=== PATIENT | female | born 1955 | race Caucasian/White ===

== ENCOUNTER 2017-07-17 11:02 | Emergency (ER) | payer SELFPAY ==
[2017-07-17 11:11] VITALS: BP 161/70
--- NOTE | 2017-07-17 11:47 | DR.GENAD ---
HPI - PCP Primary Care Physician: BENJY - Complaint/Symptoms Chief Complaint Doctors Comments: Patient admits to diarrhea for four weeks. Recently the stool was black. She denies vomiting. She admits to a history diverticulitis and GI surgery. She smokes but denies cardiopulmonary disease. Chief Complaint:: PT C/O DIARRHEA THAT HAS BEEN GOING ON X4 WEEKS PT HAS NOT BEEN ABLE TO EAT ANYTHING. PT STATES SHE IS WEAK SHE ALSO STATES HER BM IS BLACK IN COLOR - Source History Provided: Patient - Mode of Arrival Mode of Arrival: Ambulatory - Timing Onset of Chief Complaint: 06/19/17 PMH - PMH Past Medical History: Yes Past Medical History: Coronary Artery Disease, Diabetes, Dyslipidemia, Hypertension Past Medical History Comment: DIVERTICULOSIS Past Surgical History: Yes Surgical History: Abdominal Surgery, Cholecystectomy Past Surgical History Comment: TUBALIGATION - Family History History of Family Medical Conditions: No - Social History Does patient currently use any type of tobacco product: Yes Have you used tobacco products in the last 12 months: Yes Type of Tobacco Use: Cigarettes Alcohol Use: None Do you use any recreational Drugs:: No Lives With: Family Lives Where: Home - infectious screening In the last 2 months have you had wt loss of >10#?: NO Have you had fever, night sweats or hemotysis?: No Have you traveled outside the country in the last 6 months?: No Isolation: Standard ROS - Review of Systems Constitutional: negative: Diaphoresis Eyes: No Symptoms Reported ENTM: No Symptoms Reported Respiratoy: No Symptoms Reported Cardiovascular: No Symptoms Reported Gastrointestinal/Abdominal: No Symptoms Reported Genitourinary: No Symptoms Reported Neurological: No Symptoms Reported Musculoskeletal: No Symptoms Reported Integumentary: No Symptoms Reported Hematologic/Lymphatic: No Symptoms Reported Endocrine: No Symptoms Reported Psychiatric: No Symptoms Reported All Other Systems: Reviewed and Negative PE - Vital Signs Vitals: Temperature 97.9 F Pulse Rate 71 Respiratory Rate 20 Blood Pressure 161/70 O2 Sat by Pulse Oximetry 99 - General Limitations: No Limitations General Appearance: Alert, In No Apparent Distress - Head Head Exam: Normal Inspection, Atraumatic - Eyes Eye exam: Normal Appearance, PERRL, EOMI - ENT ENT Exam: Normal Exam External Ear Exam: Normal External Inspection TM/Canal Exam: Bilateral Normal Nose Exam: Normal Nose Exam Mouth Exam: Normal Inspection Throat Exam: Normal Inspection - Neck Neck Exam: Normal Inspection, Full ROM - Chest Chest Inspection: Normal Inspection, Symmetric Chest Wall Rise - Respiratory Respiratory Exam: Normal Lung Sounds Bilat Respiratory Exam: Bilateral Clear to Auscultation - Cardiovascular Cardiovascular Exam: Regular Rate, Normal Rhythm - Abdominal Exam Abdominal Exam: Normal Inspection Abdominal Tenderness: negative: RUQ, RLQ, LUQ, LLQ, Epigastrium, Suprapubic, Diffuse, Mild, Moderate, Severe, Other - Extremities Extremities Exam: Normal Inspection - Back Back Exam: Normal Inspection - Neurologic Neurological Exam: Alert, Oriented X3, CN II-XII Intact - Psychiatric Psychiatric Exam: Normal Affect - Skin Skin Exam: Warm, Dry, Intact Course - Reevaluation 1st: Improved - Education/Counseling Educated On: Treatment, Diagnosis, Prognosis, Needs for Follow Up ROR - Labs Reviewed Result Diagrams: 07/17/17 12:03 07/17/17 12:03 Laboratory: WBC 10.6 X10^3/uL (3.6-10.0) H 07/17/17 12:03 RBC 4.17 X10^6/uL (3.5-5.4) 07/17/17 12:03 Hgb 12.2 g/dL (12.0-16.0) 07/17/17 12:03 Hct 36.2 % (36.0-47.0) 07/17/17 12:03 MCV 86.9 fL (80.0-100.0) 07/17/17 12:03 MCH 29.4 pg (27.0-34.0) 07/17/17 12:03 MCHC 33.8 g/dL (33.0-35.0) 07/17/17 12:03 RDW 13.4 % (11.6-16.5) 07/17/17 12:03 Plt Count 432 X10^3/uL (150.0-450.0) 07/17/17 12:03 MPV 7.8 fL (7.4-11.0) 07/17/17 12:03 Neut % 69.1 % (42.0-75.0) 07/17/17 12:03 Lymph % 16.7 % (21.0-51.0) L 07/17/17 12:03 Bennett % 12.8 % (0.0-13.0) 07/17/17 12:03 Eos % 0.8 % (0.9-2.9) L 07/17/17 12:03 Baso % 0.6 % (0.2-1.0) 07/17/17 12:03 Neut # 7.3 x10^3/uL (2.2-4.8) H 07/17/17 12:03 Lymph # 1.8 X10^3/uL (1.3-2.9) 07/17/17 12:03 Bennett # 1.4 x10^3/uL (0.3-0.8) H 07/17/17 12:03 Eos # 0.1 x10^3/uL (0.0-0.2) 07/17/17 12:03 Baso # 0.1 X10^3/uL (0.0-0.1) 07/17/17 12:03 Absolute Nucleated RBC 0.0 /100WBC 07/17/17 12:03 Sodium 139 mmol/L (136-145) 07/17/17 12:03 Corrected Sodium 142 mmol/L (136-145) 07/17/17 12:03 Potassium 3.4 mmol/L (3.5-5.1) L 07/17/17 12:03 Chloride 104 mmol/L (98-107) 07/17/17 12:03 Carbon Dioxide 22.8 mmol/L (21-32) 07/17/17 12:03 BUN 31 mg/dL (7-18) H 07/17/17 12:03 Creatinine 2.73 mg/dL (0.55-1.02) H 07/17/17 12:03 Est GFR (MDRD) Af Amer 23 (>60) L 07/17/17 12:03 Est GFR (MDRD) Non-Af 19 (>60) L 07/17/17 12:03 Glucose 236 mg/dL (65-99) H 07/17/17 12:03 Calcium 8.6 mg/dL (8.5-10.1) 07/17/17 12:03 Corrected Calcium 9.2 mg/dL (8.5-10.1) 07/17/17 12:03 Total Bilirubin 0.20 mg/dL (0.2-1.0) 07/17/17 12:03 AST 7 Units/L (15-37) L 07/17/17 12:03 ALT 8 Units/L (12-78) L 07/17/17 12:03 Alkaline Phosphatase 101 Units/L (46-116) 07/17/17 12:03 C-Reactive Protein 17.30 mg/L (0-3.0) H 07/17/17 12:03 Total Protein 7.6 g/dL (6.4-8.2) 07/17/17 12:03 Albumin 3.2 g/dL (3.4-5.0) L 07/17/17 12:03 Globulin 4.4 g/dL (2.5-4.5) 07/17/17 12:03 Albumin/Globulin Ratio 0.7 Ratio (1.1-2.1) L 07/17/17 12:03 Amylase 21 Units/L (25-115) L 07/17/17 12:03 Lipase 83 Units/L (73-393) 07/17/17 12:03 H. pylori IgG Antibody Negative (NEGATIVE) 07/17/17 12:03 - XRAY XRAY Interpreted by: Radiologist (Chest No abnormality; Abdomen: reveals scattered large and small bowel gas. Several air-fluid levels are present appearing to be predominantly in the colon. I see no definite evidence of bowel obstruction. Small amount of stool and gas is noted in the region of the rectum. Surgical sutures overlie the abdomen. No acute bony abnormalities are identified.) - Diagnosis Discharge Problem: Chronic diarrhea, Hypokalemia, Dehydration, mild - Discharge Plan Condition: Stable - Follow ups/Referrals Follow ups/Referrals: [facility] [Primary Care Provider] - 3 days - Instructions
[2017-07-17] MEDS ORDERED: NS 1000 ML 1,000 ML ONE ×2 (11:50→13:23)
[2017-07-17] MEDS ORDERED: NS 1000 ML 1,000 ML IV ONE ×2 (12:06→13:15)
[2017-07-17 12:10] LABS: BASOPHILS # (AUTO) 0.1 X10^3/uL (0.0-0.1); BASOPHILS % (AUTO) 0.6 % (0.2-1.0); EOSINOPHILS # (AUTO) 0.1 x10^3/uL (0.0-0.2); EOSINOPHILS % (AUTO) 0.8 % (0.9-2.9); HEMATOCRIT 36.2 % (36.0-47.0); HEMOGLOBIN 12.2 g/dL (12.0-16.0); LYMPHOCYTES # (AUTO) 1.8 X10^3/uL (1.3-2.9); LYMPHOCYTES % (AUTO) 16.7 % (21.0-51.0); MEAN CORPUSCULAR HEMOGLOBIN 29.4 pg (27.0-34.0); MEAN CORPUSCULAR HGB CONC 33.8 g/dL (33.0-35.0); MEAN CORPUSCULAR VOLUME 86.9 fL (80.0-100.0); MEAN PLATELET VOLUME 7.8 fL (7.4-11.0); MONOCYTES # (AUTO) 1.4 x10^3/uL (0.3-0.8); MONOCYTES % (AUTO) 12.8 % (0.0-13.0); NEUTROPHILS # (AUTO) 7.3 x10^3/uL (2.2-4.8); NEUTROPHILS % (AUTO) 69.1 % (42.0-75.0); PLATELET COUNT 432 X10^3/uL (150.0-450.0); RED BLOOD COUNT 4.17 X10^6/uL (3.5-5.4); RED CELL DISTRIBUTION WIDTH 13.4 % (11.6-16.5); WHITE BLOOD COUNT 10.6 X10^3/uL (3.6-10.0)
[2017-07-17 12:22] LABS: ALBUMIN 3.2 g/dL (3.4-5.0); C-REACTIVE PROTEIN 17.3 mg/L (0-3.0); CALCIUM 8.6 mg/dL (8.5-10.1); CARBON DIOXIDE 22.8 mmol/L (21-32); COR CA(FOR HYPOALB) 9.2 mg/dL (8.5-10.1); CREATININE 2.73 mg/dL (0.55-1.02); TOTAL PROTEIN 7.6 g/dL (6.4-8.2)
--- NOTE | 2017-07-17 12:37 | RAD ---
HISTORY: Diarrhea off for 4 weeks. Study: PA chest with supine and upright abdominal views Comparison: None Findings: The lungs are clear. The heart size is normal. No acute bony abnormalities are identified. Examination of the abdomen reveals scattered large and small bowel gas. Several air-fluid levels are present, appearing to be predominantly in the colon. I see no definite evidence of bowel obstructio n. Small amount of stool and gas is noted in the region of the rectum. Surgical sutures overlie the abdomen. No acute bony abnormalities are identified. IMPRESSION: 1. No radiographic evidence of acute cardiopulmonary disease. 2. Several air-fluid levels are present, appearing to be predominantly within the colon. This bowel gas pattern is nonspecific. It may be seen with a diarrheal process or an ileus. I cannot entirely exclude the possibility of a developing bowel obstruction. Clinical correlation recommended. Reported By:
[2017-07-17] MEDS ORDERED: K-DUR TAB 20 MEQ PO ONE ×2 (14:33→14:34)
== END 2017-07-17 14:41 | disposition home or self-care (01) ==
LOC: ER 11:17
DX: R19.7 Diarrhea, unspecified (principal); E87.6 Hypokalemia; E86.0 Dehydration
CPT/HCPCS: 36415; 74022; 80053; 82150; 83690; 85025; 86140; 86677; 96365; 96367; 99283; A4222